=== PATIENT | male | born 1970 | race Caucasian/White ===

== ENCOUNTER 2023-10-30 06:47 | Day surgery (SDC) | payer OTHER, SELFPAY ==
[2023-10-30] VITALS (25 sets, daily range): BP systolic 119–190; BP diastolic 84–97; PULSE 59–100; RESP 14–20; TEMP 36.4; O2SAT 95–100; BMI 30.2
[2023-10-30] MEDS: SODIUM CHLORIDE 0.9 % (FLUSH) 10 ML SYRINGE IVF (07:30)
[2023-10-30] MEDS: CEFAZOLIN 2 GM INJ IVP (07:30)
[2023-10-30] MEDS: BUPIVACAINE 0.5% 30 ML INJECTION (09:17)
[2023-10-30] MEDS: lidocaine HCL 2 % MULTIDOSE 20 ML VIAL INJECTION (09:17)
--- NOTE | 2023-10-30 11:54 | PM.ORPRC ---
Procedure Note Date of procedure: 10/30/23 Procedure: Preop diagnosis: Bilateral upper extremity carpal tunnel syndrome, right hand ring finger mucous cyst Postop diagnosis: Bilateral upper extremity carpal tunnel syndrome, right hand ring finger soft tissue mass Procedure: Bilateral upper extremity carpal tunnel release, flexor tendon tenosynovectomy, right hand ring finger soft tissue mass excisional biopsy, DIP joint debridement Anesthesia: Local Surgeon: Ronaldo Block MD psychiatric nursing assistant: IFEANYI Frank EBL: 10 mL Complications: None Specimens: Sent for gross and microscopic pathology labeled right hand, ring finger soft tissue mass Drains: None Preoperative antibiotics: Ancef 2 g Indications: The patient has a history of bilateral upper extremity carpal tunnel syndrome symptoms. Additionally, there is a large cyst off of the dorsum of the right hand ring finger DIP joint. Despite appropriate nonoperative management consisting of nighttime bracing and occupational therapy they continue to have symptoms. Operative intervention was recommended. The risks, benefits alternatives and expected outcomes were discussed in detail. These included but were not limited to: Infection, bleeding, injury to blood vessel or nerve, venous thromboembolism. All questions were answered to their satisfaction. The patient was placed supine on the operating room table. Local anesthesia was established with 0.5% Marcaine without epinephrine and 2% lidocaine without epinephrine. Both hands were prepped and draped in usual sterile fashion. The left upper extremity was approached 1st. It was elevated and the forearm pneumatic tourniquet was inflated to 250 mm of mercury. A longitudinal incision was made centered over the radial border of the ring finger at the base of the palm. Subcutaneous dissection was sharply taken through the palmar fascia and the palmaris brevis to the transverse carpal ligament. The ligament was divided in line with the incision. Proximal and distal dissection was carried with tenotomy and Metzenbaum scissors for a wide decompression of the carpal tunnel. There was a marked amount of thickened tenosynovium around all of the flexor tendons. This was aggressively debrided with the tenotomy scissors. The tourniquet was released, bleeding was controlled with direct pressure. The wound was closed with a 3-0 nylon. A bulky dry dressing was applied. Attention was then turned to the right hand. The extremity was elevated, the forearm pneumatic tourniquet was inflated 250 mmHg. A longitudinal incision was made centered over the radial border of the ring finger at the base of the palm. Subcutaneous dissection was sharply taken through the palmar fascia and the palmaris brevis to the transverse carpal ligament. The ligament was divided in line with the incision. Proximal and distal dissection was carried with tenotomy and Metzenbaum scissors for a wide decompression of the carpal tunnel. There was a marked amount of thickened tenosynovium around all of the flexor tendons. This was aggressively debrided with the tenotomy scissors. The wound was closed with a 3-0 nylon. A bulky dry dressing was applied. The tourniquet was released. Attention was then turned to the right hand ring finger. The tournikot was placed. A Corbin incision was made over the dorsum of the DIP joint, with an ulnar based flap. A full-thickness skin flap was elevated. The mass was encountered and was found to be a solid, soft tissue mass. It was not invading the local soft tissues or bone. The skin was carefully dissected off of it dorsally. It was carefully dissected off of the extensor tendon. It did not appear to be emanating from the DIP joint. It was removed en bloc, labeled right hand ring finger soft tissue mass and sent to pathology for gross and microscopic evaluation. We entered both the radial and ulnar aspects of the DIP joint sharply. The rongeur was used to debride the base of the distal phalanx and the distal corner of the middle phalanx to decompress the DIP joint. The wound was irrigated with normal saline. He was closed with a 3-0 nylon in a simple interrupted fashion. The tournikot was released. A dry dressing was applied. Sponge and needle counts were correct x 2. The patient tolerated the procedure well, there were no apparent complications. They were sent to same day surgery in satisfactory condition. Plan: Use of the hands as tolerates. Discontinue the intraoperative dressing on postoperative day 3 and may get the wound wet as tolerates. Follow up in the office in 2 weeks for a wound check, suture removal and to check the final pathology.
== END 2023-10-30 11:34 | disposition home or self-care (01) ==
PROVIDERS: PCP Family Medicine; Visit Provider Orthopaedic Surgery
PROC: (CPT 64721; principal; 2023-10-30 09:15)
PROC: (CPT 26860; 2023-10-30 09:15)
DX: G56.03 Carpal tunnel syndrome, bilateral upper limbs (principal); D48.19 Other specified neoplasm of uncertain behavior of connective and other soft tissue
CPT/HCPCS: 64721; 26145; 26111; 88307; J0665; J0690

== ENCOUNTER 2025-01-06 07:28 | Day surgery (SDC) | payer OTHER, SELFPAY ==
[2025-01-06] VITALS (15 sets, daily range): BP systolic 117–152; BP diastolic 78–105; PULSE 58–62; RESP 14–18; TEMP 35.9–36.2; O2SAT 94–98; BMI 31.8
[2025-01-06] MEDS: SODIUM CHLORIDE 0.9 % (FLUSH) 10 ML SYRINGE IVF (08:00)
[2025-01-06] MEDS: LACTATED RINGERS 1000 ML 1,000 ML 100 ML IV (08:00)
[2025-01-06] MEDS: OXYCODONE (CR) 10 MG TAB.ER.12H PO (08:50)
[2025-01-06] MEDS: ACETAMINOPHEN 500 MG TABLET 1000 MG PO (08:50)
--- NOTE | 2025-01-06 08:52 | SUR.PREOP ---
TIME?OUT:?0853 PT/RN/MDA?VERIFICATION?OF?SURGICAL?SITE,?PROCEDURE,?AND?CONSENT OBTAINED?PRIOR?TO?INVASIVE?PROCEDURE.
[2025-01-06] MEDS: MIDAZOLAM HCL 1 MG/ML inj IVP (08:54)
[2025-01-06] MEDS: fentaNYL 100 MCG/2 ML inj IVP (08:54)
--- NOTE | 2025-01-06 09:49 | P.ANES_ITS ---
Anesthesia Charges Start Date/Time Anesthesia Start Date: 01/06/25 Anesthesia Start Time: 09:43 Stop Date/Time Anesthesia Stop Date: 01/06/25 Anesthesia Stop Time: 12:19 Coding CPT Codes CPT Codes: ANESTH ACHILLES TENDON SURG - 17921 ([id number]) P3 - PATIENT W/SEVERE SYS DISEASE, QK - SHIFT SUPERVISOR FILM PROCESSING 2-4 CNCRNT ANES PROC, QX - COMPLIANCE INTERN SVC W/ MD MED DIRECTION
--- NOTE | 2025-01-06 09:49 | W.ANESCHARGE ---
Anesthesia Charges Start Date/Time Anesthesia Start Date: 01/06/25 Anesthesia Start Time: 09:43 Stop Date/Time Anesthesia Stop Date: 01/06/25 Anesthesia Stop Time: 12:19 Coding CPT Codes CPT Codes: ANESTH ACHILLES TENDON SURG - 61827 ([id number]) P3 - PATIENT W/SEVERE SYS DISEASE, QK - PEDIATRICIAN ACTIVE PRACTICE 2-4 CNCRNT ANES PROC, QX - ELECTRON MICROSCOPIST SVC W/ MD MED DIRECTION
[2025-01-06] MEDS: CEFAZOLIN 2 GM INJ IVP (10:00)
--- NOTE | 2025-01-06 11:40 | PM.ORPRC ---
Procedure Note Date of procedure: 01/06/25 Procedure: PREOPERATIVE DIAGNOSIS: Left lower extremity Achilles rupture POSTOPERATIVE DIAGNOSIS: Left lower extremity Achilles rupture NAME OF OPERATION: Primary repair with flexor hallucis longus augmentation SURGEON: Ronaldo Block MD PROTECTIVE SERVICES CASE WORKER: Ping Eisenberg PA-C ANESTHESIA: Spinal, plus popliteal block ESTIMATED BLOOD LOSS: 0 mL COMPLICATIONS: None SPECIMENS: None DRAINS: None PREOPERATIVE ANTIBIOTICS: Ancef 2 gram INDICATIONS: The patient is a 54-year-old male who sustained a left lower extremity Achilles tendon rupture. Primary repair with FHL augmentation was recommended. The risks, benefits and expected outcomes were discussed in detail. These included but were not limited to: Infection, bleeding, injury to blood vessel or nerve, venous thromboembolism. All questions were answered to their satisfaction. Use of an assistant teacher primary was necessary throughout the case for patient positioning and safety, soft tissue retraction and closure. PROCEDURE: A popliteal block was placed by anesthesia. The patient was placed supine on the operating room table. Spinal anesthesia was administered. The left lower extremity was prepped and draped in the usual sterile fashion. The limb was exsanguinated with the Tico bandage. The pneumatic tourniquet was inflated to 300 mmHg. A longitudinal incision was made medially, over the Achilles tendon. Subcutaneous dissection was taken sharply to the Achilles which was completely ruptured. The assistant teacher primary was used to retract the soft tissues and protect them. A #2 FiberWire suture was placed in each end of the Achilles in a modified Krackow stitch. Attention was then turned to the FHL graft harvest. The deep fascia over the FHL was longitudinally divided. The FHL muscle belly was mobilized off of the fibula. Care was taken to protect the tibial nerve. We elected to proceed with a long FHL graft harvest. Therefore, a longitudinal incision was made over the medial border of the foot in the junction between the normal and glabrous skin. Subcutaneous dissection sharply taken to the abductor hallucis muscle. The muscle was elevated off of the bone and retracted plantarly. Crossing veins were cauterized. The master knot of Simeon was encountered. The FHL tendon was isolated and was divided, just proximal to the master knot of Simeon. The graft was pulled into the proximal wound. We then passed the FHL graft from anterior to posterior through the distal stump of the tendon, just proximal to its insertion. The ankle was placed in plantar flexion and the FiberWire sutures were tied securing the primary repair of the Achilles tendon. We then placed the ankle at 90? and tensioned the FHL graft and sutured it to the distal stump of the Achilles tendon with an 0 Vicryl suture. It was secured along the medial border of Achilles with multiple interrupted horizontal mattress 0 Vicryl sutures. It was then advanced distally again across the rupture site and secured to the achilles again. This provided an excellent repair of the Achilles with augmentation. There is no tension on the repair with the ankle in a neutral position. The wounds were irrigated with normal saline. The assistant teacher primary closed soft tissue with a 2-0 Vicryl deep and a 3-0 Monocryl in a subcuticular fashion. Glue was used to seal the skin. The assistant teacher primary placed a dry dressing and short leg Frank Carrero splint with the ankle in a neutral position. The tourniquet was released. Sponge and needle counts were correct x 2. The patient tolerated the procedure well. There were no apparent complications. They were carefully transferred to the hospital bed and taken to the postanesthesia care unit in satisfactory condition. PLAN: The patient will be discharged to home. They will remain strict nonweightbearing on the lower extremity. They will continue to work on ice and elevation. They will follow up in the office in 2 weeks for a wound check. If there are no wound issues we will place them in a CAM walker and allow them to weightbear as tolerates. Additionally, we will likely begin some early physical therapy.
--- NOTE | 2025-01-06 11:54 | P.ANES_ITS ---
Anesthesia Charges Start Date/Time Anesthesia Start Date: 01/06/25 Anesthesia Start Time: 09:43 Stop Date/Time Anesthesia Stop Date: 01/06/25 Anesthesia Stop Time: 12:19 Coding CPT Codes CPT Codes: ANESTH ACHILLES TENDON SURG - 36203 ([id number]) P3 - PATIENT W/SEVERE SYS DISEASE, QK - TELEPHONE QUOTATION CLERK 2-4 CNCRNT ANES PROC, QX - [employer] ADVISOR SVC W/ MD MED DIRECTION
--- NOTE | 2025-01-06 11:54 | W.ANESCHARGE ---
Anesthesia Charges Start Date/Time Anesthesia Start Date: 01/06/25 Anesthesia Start Time: 09:43 Stop Date/Time Anesthesia Stop Date: 01/06/25 Anesthesia Stop Time: 12:19 Coding CPT Codes CPT Codes: ANESTH ACHILLES TENDON SURG - 92301 ([id number]) P3 - PATIENT W/SEVERE SYS DISEASE, QK - RESIDENCE SUPERVISOR 2-4 CNCRNT ANES PROC, QX - BOND MANAGER SVC W/ MD MED DIRECTION
--- NOTE | 2025-01-06 11:55 | W.PM.NB ---
Nerve Block Nerve Block Time Seen by Provider: 08:55 Date Seen: 01/06/25 Type of block requested by surgeon for post-operative analgesia: popliteal Side: left Time out performed: Yes Verification of patient name: Yes Verification of date of : Yes Site marking: site marked Name of person performing procedure: Roberto Continuous monitoring Was continuous monitoring of O2 sat, B/P, atmospheric scientist, recorded every 15 minutes?: Yes Procedure Checklist: sterile prep, needles and gloves Ultrasound guided. Images saved: Yes Medications given in 5ml increments after negative aspiration: Marcaine %: 0.25 mL: 10 Needle gauge: 22 and Exparel mL: 10 Patient tolerated procedure well: Yes Additional comments: Needle noted adjacent to nerve Block Charges Block Charge (with Pro Fee): Sciatic Nerve Use of Ultrasound Machine for Block: Yes- US Guidance/pain block
== END 2025-01-06 14:28 | disposition home or self-care (01) ==
LOC: OR 07:28
PROVIDERS: PCP Family Medicine; Visit Provider Orthopaedic Surgery
PROC: (CPT 27650; principal; 2025-01-06 09:00)
DX: S86.012A Strain of left Achilles tendon, initial encounter (principal); G89.18 Other acute postprocedural pain
CPT/HCPCS: 27652; 01472; 64445; 76942; A9270; J0665; J0666; J0690; J1100; J2250; J2371; J2405; J2704; J3010; J7120